=== PATIENT | female | born 1980 | race Caucasian/White ===

== ENCOUNTER 2020-12-21 12:45 | Emergency (ER) | payer BC, MEDICAID ==
[~2020-12-21] VITALS: Ht 177.8 cm; Wt 131.8 kg
[~2020-12-21 12:45] MED LIST: CYCL-394 PO; HYDR-3965 PO; IBUP-1984 PO; OMEP-84 PO; ONDA4TAB59 PO; TRAM50TA2 PO
[2020-12-21 12:55] VITALS: BP 120/80
[2020-12-21] MEDS ORDERED: BENZ-16 PO (13:30)
[2020-12-21] MEDS ORDERED: ALBU8HFA PO (13:30)
[2020-12-21] MEDS ORDERED: DEXA6TAB6 PO (13:30)
== END 2020-12-21 14:01 | disposition home or self-care (01) ==
LOC: ER 12:45
DX: U07.1 COVID-19 (principal); R50.9 Fever, unspecified; R06.02 Shortness of breath; R05 Cough; R11.2 Nausea with vomiting, unspecified; G89.29 Other chronic pain; Z88.2 Allergy status to sulfonamides; Z88.5 Allergy status to narcotic agent; Z91.040 Latex allergy status; Z79.899 Other long term (current) drug therapy
CPT/HCPCS: 99283

== ENCOUNTER 2021-01-31 21:57 | Emergency (ER) | payer BC ==
[~2021-01-31] VITALS: Ht 177.8 cm; Wt 290.0 kg
[~2021-01-31 21:57] MED LIST changes: +DEXA6TAB6 PO
[2021-01-31 22:25] VITALS: BP 140/91
[2021-01-31 23:09] LABS: BASOPHILS % (AUTO) 0.3 % (0-1); EOSINOPHILS # (AUTO) 0.1 X10'3 (0-0.9); EOSINOPHILS % (AUTO) 1.4 % (0-6); HEMATOCRIT 38.8 % (35.0-45.0); HEMOGLOBIN 13.4 g/dl (12.0-16.0); LYMPHOCYTES # (AUTO) 2.7 X10'3 (1.1-4.8); LYMPHOCYTES % (AUTO) 30.1 % (21-51); MEAN CORPUSCULAR HEMOGLOBIN 33.7 PG (27.0-31.0); MEAN CORPUSCULAR HGB CONC 34.6 g/dL (33.0-36.5); MEAN CORPUSCULAR VOLUME 97.4 FL (78-98); MEAN PLATELET VOLUME 7.3 FL (7.4-10.4); MONOCYTES # (AUTO) 0.6 X10'3 (0-0.9); MONOCYTES % (AUTO) 7.2 % (2-12); NEUTROPHILS # (AUTO) 5.4 X10'3 (1.8-7.7); PLATELET COUNT 369 X10'3 (140-440); RED BLOOD COUNT 3.99 X10'6 (4.20-5.60); RED CELL DISTRIBUTION WIDTH 14.1 % (11.5-14.5); WHITE BLOOD COUNT 8.9 X10'3 (4.5-11.0)
[2021-01-31 23:19] LABS: ALANINE AMINOTRANSFERASE 27 U/L (12-78); ALBUMIN 3.9 G/DL (3.4-5.0); ALKALINE PHOSPHATASE 61 IU/L (46-116); ANION GAP 9 (8-16); ASPARTATE AMINO TRANSFERASE 17 U/L (10-37); BILIRUBIN,TOTAL 0.2 MG/DL (0.1-1.0); BLOOD UREA NITROGEN 21 MG/DL (7-18); BUN/CREATININE RATIO 25.6 (6.6-38.0); CALCIUM 8.9 MG/DL (8.5-10.1); CHLORIDE 108 MMOL/L (99-107); CREATININE 0.82 MG/DL (0.40-0.90); GLUCOSE 86 MG/DL (70-104); POTASSIUM 3.9 MMOL/L (3.5-5.1); SODIUM 144 MMOL/L (135-145); TOTAL CARBON DIOXIDE 27.5 MMOL/L (24-32); TOTAL PROTEIN 7.7 G/DL (6.4-8.2); eGFR 76 ML/MIN
[2021-02-01 01:08] LABS: D-DIMER 1.01 MG/L FEU (0-0.50)
[2021-02-01] MEDS ORDERED: iohexol 350MG/ML 100ml bottle IV ONE (01:59)
== END 2021-02-01 04:19 | disposition home or self-care (01) ==
LOC: ER 21:57
DX: U07.1 COVID-19 (principal); R06.02 Shortness of breath; R07.89 Other chest pain; K76.9 Liver disease, unspecified; G89.29 Other chronic pain; Z88.2 Allergy status to sulfonamides; Z91.040 Latex allergy status; Z88.8 Allergy status to other drugs, medicaments and biological substances; Z79.899 Other long term (current) drug therapy
CPT/HCPCS: 36415; 71045; 71275; 80053; 83880; 84484; 85025; 85379; 93005; 99285; Q9967

== ENCOUNTER 2023-09-14 14:42 | Inpatient (IN) | payer BC ==
[~2023-09-14] VITALS: Ht 177.8 cm; Wt 142.3 kg
[2023-09-14] MEDS ORDERED: OXYB10TA30 PO (15:01)
[2023-09-14] MEDS ORDERED: LEVO125T8 PO (15:01)
[2023-09-14 15:34] LABS: ALANINE AMINOTRANSFERASE 24 U/L (12-78); ALBUMIN/GLOBULIN RATIO 0.9 (1.1-1.5); ALKALINE PHOSPHATASE 57 IU/L (46-116); ANION GAP 14 (8-16); ASPARTATE AMINO TRANSFERASE 24 U/L (10-37); BASOPHILS # (AUTO) 0.1 X10'3 (0-0.2); BASOPHILS % (AUTO) 0.8 % (0-1); BILIRUBIN,TOTAL 0.3 MG/DL (0.1-1.0); BLOOD UREA NITROGEN 16 MG/DL (7-18); BUN/CREATININE RATIO 17.8 (10.0-20.0); CALCIUM 9.3 MG/DL (8.5-10.1); CHLORIDE 103 MMOL/L (99-107); EOSINOPHILS # (AUTO) 0.1 X10'3 (0-0.9); GLUCOSE 82 MG/DL (70-104); HEMOGLOBIN 14.4 g/dl (12.0-16.0); LYMPHOCYTES % (AUTO) 25.1 % (21-51); MEAN CORPUSCULAR HEMOGLOBIN 32.2 PG (27.0-31.0); MEAN CORPUSCULAR HGB CONC 32.8 g/dL (33.0-36.5); MEAN CORPUSCULAR VOLUME 97.9 FL (78-98); MEAN PLATELET VOLUME 8.3 FL (7.4-10.4); MONOCYTES # (AUTO) 0.8 X10'3 (0-0.9); MONOCYTES % (AUTO) 6.4 % (2-12); NEUTROPHILS # (AUTO) 7.9 X10'3 (1.8-7.7); NEUTROPHILS % (AUTO) 66.7 % (42-75); PLATELET COUNT 362 X10'3 (140-440); POTASSIUM 3.3 MMOL/L (3.5-5.1); RED BLOOD COUNT 4.49 X10'6 (4.20-5.60); RED CELL DISTRIBUTION WIDTH 14.3 % (11.5-14.5); SODIUM 139 MMOL/L (135-145); TOTAL CARBON DIOXIDE 22.5 MMOL/L (24-32); TOTAL PROTEIN 8.3 G/DL (6.4-8.2); WHITE BLOOD COUNT 11.9 X10'3 (4.5-11.0); eCRCL 85 ML/MIN; eGFR 68 ML/MIN
[2023-09-14 15:43] LABS: PRO BRAIN NATRIURETIC PEPTIDE 242 PG/ML (0-125)
[2023-09-14] MEDS: diltiazem 5mg/ml 5ml inj. IV ONE (16:18)
[2023-09-14] MEDS: diltiazem-NS 100mg/100ml 100 ML IV ONE (17:22)
[2023-09-14] MEDS ORDERED: magnesium Cl slow-release 64mg tablet PO PRN (17:30)
[2023-09-14] MEDS ORDERED: potassium Cl 40MEQ/1/2NS 520ml 520 ML IV PRN (17:30)
[2023-09-14] MEDS ORDERED: magnesium 4gm in 100ml NS 100 ML IV PRN (17:30)
[2023-09-14] MEDS ORDERED: potassium Cl 20 mEq SR tablet PO PRN (17:30)
[2023-09-14] MEDS ORDERED: magnesium 2GM in 50ml NS 50 ML IV PRN (17:30)
[2023-09-14] MEDS ORDERED: ondansetron/PF 4mg/2ml inj IV PRN (17:30)
[2023-09-14] MEDS: metoprolol tartrate 25mg tablet PO ONE (18:31)
[2023-09-14] MEDS: potassium Cl 20 mEq SR tablet PO PRN (20:49)
[2023-09-14] MEDS: heparin, porcine 5000 units/ml vial SQ SCH (20:50)
[2023-09-14] MEDS: K and/or MAG REPLACEMENT MC SCH (20:53)
[2023-09-14 22:00] VITALS: BP 108/72; PULSE 74; RESP 13; RESP 14; TEMP 97.9; O2SAT 96
[2023-09-14 23:00] VITALS: BP 117/76; PULSE 76; RESP 13; O2SAT 96
[2023-09-14 23:30] VITALS: BP 99/65; PULSE 69; RESP 10; O2SAT 96
[2023-09-15] VITALS (10 sets, daily range): BP systolic 91–125; BP diastolic 55–80; PULSE 64–74; RESP 12–19; TEMP 97.7–97.9; O2SAT 96–100
[2023-09-15] MEDS ORDERED: heparin, porcine 5000 units/ml vial SQ SCH
[2023-09-15] MEDS: diltiazem-NS 100mg/100ml 100 ML IV SCH (00:30)
[2023-09-15 05:54] LABS: BASOPHILS % (AUTO) 0.7 % (0-1); EOSINOPHILS # (AUTO) 0.1 X10'3 (0-0.9); EOSINOPHILS % (AUTO) 1.5 % (0-6); HEMATOCRIT 41.6 % (35.0-45.0); HEMOGLOBIN 13.8 g/dl (12.0-16.0); LYMPHOCYTES # (AUTO) 2.1 X10'3 (1.1-4.8); LYMPHOCYTES % (AUTO) 29.4 % (21-51); MEAN CORPUSCULAR HEMOGLOBIN 32.6 PG (27.0-31.0); MEAN CORPUSCULAR HGB CONC 33.2 g/dL (33.0-36.5); MEAN CORPUSCULAR VOLUME 97.9 FL (78-98); MEAN PLATELET VOLUME 7.7 FL (7.4-10.4); MONOCYTES # (AUTO) 0.6 X10'3 (0-0.9); MONOCYTES % (AUTO) 8.8 % (2-12); NEUTROPHILS # (AUTO) 4.2 X10'3 (1.8-7.7); NEUTROPHILS % (AUTO) 59.6 % (42-75); PLATELET COUNT 309 X10'3 (140-440); RED BLOOD COUNT 4.25 X10'6 (4.20-5.60); RED CELL DISTRIBUTION WIDTH 14.2 % (11.5-14.5); WHITE BLOOD COUNT 7.1 X10'3 (4.5-11.0)
[2023-09-15 06:17] LABS: ALBUMIN 3.3 G/DL (3.4-5.0); ANION GAP 7 (8-16); BLOOD UREA NITROGEN 12 MG/DL (7-18); BUN/CREATININE RATIO 17.4 (10.0-20.0); CALCIUM 8.6 MG/DL (8.5-10.1); CHLORIDE 109 MMOL/L (99-107); CREATININE 0.69 MG/DL (0.40-0.90); GLUCOSE 89 MG/DL (70-104); MAGNESIUM 2.1 MG/DL (1.5-2.4); POTASSIUM 3.8 MMOL/L (3.5-5.1); SODIUM 142 MMOL/L (135-145); THYROID STIMULATING HORMONE 2.72 ulU/ml (0.34-4.50); TOTAL CARBON DIOXIDE 25.9 MMOL/L (24-32); eCRCL 111 ML/MIN; eGFR > 90 ML/MIN
[2023-09-15] MEDS: acetaminophen 325mg tablet PO PRN (10:33)
[2023-09-15] MEDS ORDERED: SOTA80TA46 PO (12:49)
== END 2023-09-15 14:18 | disposition home or self-care (01) | DRG 309 ==
LOC: ER 14:43 → ED HOLD 17:32 → PCU 3S 21:25
PROVIDERS: ADMIT Internal Medicine; ATTEND Internal Medicine
DX: I48.0 Paroxysmal atrial fibrillation (principal); E66.9 Obesity, unspecified; E03.9 Hypothyroidism, unspecified; E87.6 Hypokalemia; M19.09 Primary osteoarthritis, other specified site; Z68.42 Body mass index [BMI] 45.0-49.9, adult; G47.30 Sleep apnea, unspecified; Z96.642 Presence of left artificial hip joint; Z88.5 Allergy status to narcotic agent; Z82.49 Family history of ischemic heart disease and other diseases of the circulatory system; Z88.2 Allergy status to sulfonamides; Z63.4 Disappearance and death of family member; Z91.040 Latex allergy status; Z79.899 Other long term (current) drug therapy; Z87.891 Personal history of nicotine dependence
CPT/HCPCS: 36415; 80048; 80053; 83735; 83880; 84443; 84484; 85025; 87081; 93005; 93306; 96365; 96376; 99285; G0378; J1644; J3490